=== PATIENT | female | born 1955 | race Caucasian/White ===

== ENCOUNTER 2016-03-26 23:53 | Emergency (ER) | payer MEDICARE ==
[2016-03-26 23:54] VITALS: BMI 17.2
[2016-03-27 00:01] VITALS: TEMP 97.4
--- NOTE | 2016-03-27 03:18 | EDPRACDOC ---
- General Information Information Source: Patient Mode Of Arrival: Car - History of Present Illness Onset: 6 days HPI: C/o back pain between her shoulder blades x 6 days, with epigastric pain and "tight stomach" x 2 days. Denies, fever, cp, sob, cough, sore throat, N/V/D, chnages in urine or BM. Eating and drinking normally. Med hx = HDL. Surgeries = g-tube in 2003 for throat cancer. Pain Location: Reports: Upper, Thoracic Pain Radiates To: Reports: None Pain Caused By: Reports: Lifting Circumstances: Reports: Other (chores) Relevant History: Reports: None Currently ?: No Pain Severity: Reports: Moderate Pain Quality: Reports: Sharp Worsened By: Reports: Breathing, Movement Associated Signs and Symptoms: Reports: Abdominal Pain <Rj Yeager - Last Filed: 03/27/16 03:41> <Rick Roman - Last Filed: 03/27/16 05:36> - General Information Chief Complaint: Back Pain Stated Complaint: BACK PAIN Time Seen by Provider: 03/27/16 02:56 Home Medications: Home Medications Aspirin [Chewable Aspirin] 81 mg PO DAILY 12/26/12 Multivitamin [Multiple Vitamins] 1 each PO DAILY 12/26/12 Atorvastatin Calcium [Lipitor] 20 mg PO DAILY 02/13/15 Azithromcyin [Zithromax 200 mg/5 ml] 250 ml PO DAILY 5 Days 03/27/16 Hydrocodone/Acetamin Liquid [Lortab Elixir] 10 ml PO Q6H 7 Days 03/27/16 Allergies/Adverse Reactions: Allergies Allergy/AdvReac Type Severity Reaction Status Date / Time valacyclovir HCl Allergy Hives* Verified 03/27/16 00:01 [From Valtrex] ED Past Medical History - History Reviewed Yes Nurses notes reviewed and agree except as marked - Patient Medical History Neurological History: Denies: Cerebrovascular Accident Respiratory History: Reports: Pneumonia (weeks ago) Musculoskeletal History: Reports: Arthritis Psychological History: Reports: Depression, Anxiety Systemic History: Reports: Cancer (tonsil), Anemia Surgical History: Reports: Tonsillectomy/Adnoidectomy. Denies: Hysterectomy Date of Last Radiation Treatment: 2003 Date of Last Chemotherapy Date: 2003 - Family Medical History Reports: Hypertension (mom,dad), Cardiac Disorders (dad). Denies: Diabetes, Cancer, Stroke - Social Medical History Smoking Status: Former smoker <Rj Yeager - Last Filed: 03/27/16 03:41> EDM Review of Systems - Review of Systems ROS Negative Except as Marked: Yes All systems reviewed and were negative except as marked Gastrointestinal: Pain Musculoskeletal: Back (pain thoracic along spine) <Rj Yeager - Last Filed: 03/27/16 03:41> - Physical Exam Constitutional: No apparent distress, Alert Oriented to: Time, Person, Place Last recorded Vital Signs: Last Vital Signs Temp 97.4 F L 03/26/16 23:56 Pulse 78 03/26/16 23:56 Resp 20 03/26/16 23:56 BP 170/86 03/26/16 23:56 Pulse Ox 97 03/26/16 23:56 Oxygen Pulse Oxygen Saturation 97 O2 Device Room Air Oxygen Flow Rate Fraction of Inspired Oxygen ( FIO2) - HEENT Head: Normal Eye Exam: negative: Conjunctival Injection, Scleral Icterus Oropharynx: negative: Drooling TMJ: Normal Nose: No Symptoms Reported Neck: Normal - Respiratory/Cardiovascular Respiratory: Normal - CTA Cardiovascular: Normal - GI Auscultation: Normal Palpation: Normal Tenderness: Moderate, Epigastric Casas's Sign: Negative - Musculoskeletal Back: Thoracic TTP Extremities: Normal - Integumentary Skin: Normal - Neurologic Mood Description: Normal Thought: Coherent Perception: Normal <Rj Yeager - Last Filed: 03/27/16 03:41> - Physical Exam Last recorded Vital Signs: Last Vital Signs Temp 97.4 F L 03/26/16 23:56 Pulse 82 03/27/16 04:00 Resp 19 03/27/16 04:00 BP 158/79 03/27/16 04:00 Pulse Ox 99 03/27/16 04:00 Oxygen Pulse Oxygen Saturation 99 O2 Device Room Air Oxygen Flow Rate Fraction of Inspired Oxygen ( FIO2) <Rick Roman - Last Filed: 03/27/16 05:36> ED Back Exam - Neurologic Motor Deficit: None - Musculoskeletal Cervical: Normal Thoracic: Tender Lumbar: Normal Midline: Tender Paraspinous: Tender Straight Leg Raise: Negative Pelvis: Normal <Rj Yeager - Last Filed: 03/27/16 03:41> - Results 03/27/16 03:27 03/27/16 03:27 - EKG EKG #1 EKG Time: 03:29 -: Yes EKG interpreted by me Rate: bpm: 81 Rhythm: NSR ST: Normal <ToyRj Blanton - Last Filed: 03/27/16 03:41> - Results 03/27/16 03:27 03/27/16 03:27 WBC 8.3 xk/uL (3.8-10.8) 03/27/16 03:27 RBC 4.60 xM/uL (4.20-5.40) 03/27/16 03:27 Hgb 12.2 g/dL (12.0-16.0) 03/27/16 03:27 Hct 36.5 % (36-47) 03/27/16 03:27 MCV 79 fL (81-99) L 03/27/16 03:27 MCH 26.6 pg (27-32) L 03/27/16 03:27 MCHC 33.5 g/dl (33-36) 03/27/16 03:27 RDW 15.6 % (11.5-14.5) H 03/27/16 03:27 Plt Count 391 xk/uL (130-400) 03/27/16 03:27 MPV 7.6 fL (7.4-10.4) 03/27/16 03:27 Neut % (Auto) 70.5 % (45-76) 03/27/16 03:27 Lymph % (Auto) 15.7 % (17-44) L 03/27/16 03:27 [place] % (Auto) 9.8 % (3-10) 03/27/16 03:27 Eos % (Auto) 3.2 % (0-5) 03/27/16 03:27 Baso % (Auto) 0.8 % (0-2) 03/27/16 03:27 Absolute Neuts (auto) 5.81 xk/uL (1.7-8.2) 03/27/16 03:27 Absolute Lymphs (auto) 1.25 xk/uL (0.65-4.75) 03/27/16 03:27 Sodium 142 mEq/L (137-146) 03/27/16 03:27 Potassium 4.2 mEq/L (3.5-5.1) 03/27/16 03:27 Chloride 100 mEq/L (98-107) 03/27/16 03:27 Carbon Dioxide 30 mMOL/L (22-33) 03/27/16 03:27 Anion Gap 16 mEq/L (8-16) 03/27/16 03:27 BUN 10 MG/DL (7-17) 03/27/16 03:27 Creatinine 0.50 MG/DL (0.52-1.04) L 03/27/16 03:27 Estimated GFR (MDRD) > 60 mL/min (>=60) 03/27/16 03:27 Glucose 101 MG/DL (70-99) H 03/27/16 03:27 Calculated Osmolality 272 MOs/Kg (270-290) 03/27/16 03:27 Calcium 9.7 MG/DL (8.4-10.2) 03/27/16 03:27 Total Bilirubin 0.4 MG/DL (0.2-1.3) 03/27/16 03:27 AST 31 IU/L (14-36) 03/27/16 03:27 ALT 27 IU/L (9-52) 03/27/16 03:27 Alkaline Phosphatase 101 IU/L (55-165) 03/27/16 03:27 Total Protein 7.9 G/DL (6.3-8.2) 03/27/16 03:27 Albumin 4.4 G/DL (3.5-5.0) 03/27/16 03:27 Lipase 33 U/L (23-300) 03/27/16 03:27 Urine Color Yellow 03/27/16 04:25 Urine Clarity Clear 03/27/16 04:25 Urine pH 6.0 (5.0-8.0) 03/27/16 04:25 Ur Specific [place] 1.005 (1.003-1.035) 03/27/16 04:25 Urine Protein Neg (NEG/TRACE) 03/27/16 04:25 Urine Glucose (UA) Neg (NEGATIVE) 03/27/16 04:25 Urine Ketones Neg (NEGATIVE) 03/27/16 04:25 Urine Occult Blood Neg (NEG/TRACE) 03/27/16 04:25 Urine Nitrite Neg (NEGATIVE) 03/27/16 04:25 Urine Bilirubin Neg (NEGATIVE) 03/27/16 04:25 Urine Urobilinogen <2.0 MG/DL (0-1) 03/27/16 04:25 Ur Leukocyte Esterase Neg (NEGATIVE) 03/27/16 04:25 Urine RBC 0-2 (0-5) 03/27/16 04:25 Urine WBC 0-2 (0-5) 03/27/16 04:25 Urine Bacteria Few (NEG/FEW) 03/27/16 04:25 Lab Results 03/27/16 03/27/16 03/27/16 04:25 03:27 03:27 WBC 8.3 RBC 4.60 Hgb 12.2 Hct 36.5 MCV 79 L MCH 26.6 L MCHC 33.5 RDW 15.6 H Plt Count 391 MPV 7.6 Neut % (Auto) 70.5 Lymph % (Auto) 15.7 L [place] % (Auto) 9.8 Eos % (Auto) 3.2 Baso % (Auto) 0.8 Absolute Neuts (auto) 5.81 Absolute Lymphs (auto) 1.25 Sodium 142 Potassium 4.2 Chloride 100 Carbon Dioxide 30 Anion Gap 16 BUN 10 Creatinine 0.50 L Estimated GFR (MDRD) > 60 Glucose 101 H Calculated Osmolality 272 Calcium 9.7 Total Bilirubin 0.4 AST 31 ALT 27 Alkaline Phosphatase 101 Total Protein 7.9 Albumin 4.4 Lipase 33 Urine Color Yellow Urine Clarity Clear Urine pH 6.0 Ur Specific [place] 1.005 Urine Protein Neg Urine Glucose (UA) Neg Urine Ketones Neg Urine Occult Blood Neg Urine Nitrite Neg Urine Bilirubin Neg Urine Urobilinogen <2.0 Ur Leukocyte Esterase Neg Urine RBC 0-2 Urine WBC 0-2 Urine Bacteria Few <Rick Roman - Last Filed: 03/27/16 05:36> <Rj Yeager - Last Filed: 03/27/16 03:41> Decision Time to Discharge: 05:35 - Departure Yes I personally saw and evaluated the patient. Disposition: Home Education/Counseling Given To: Patient Education/Counseling Given Regarding: Diagnosis, Treatment, Prognosis, Follow Up <Rick Roman - Last Filed: 03/27/16 05:36> - Departure Condition: Good Final Diagnosis: Compression fracture of L3 lumbar vertebra Right middle lobe pneumonia Qualifiers: Pneumonia type: due to unspecified organism Qualified Code(s): J18.1 - Lobar pneumonia, unspecified organism Referrals: Josh Multani MD [Primary Care Provider] - One Week Jaret Og MD [Staff Physician] - One Week Prescriptions: Azithromcyin [Zithromax 200 mg/5 ml] 250 ml PO DAILY 5 Days Hydrocodone/Acetamin Liquid [Lortab Elixir] 10 ml PO Q6H 7 Days
[2016-03-27 03:39] LABS: AUTOMATED BASOPHIL 0.8 % (0-2); AUTOMATED EOSINOPHIL 3.2 % (0-5); AUTOMATED LYMPH 15.7 % (17-44); AUTOMATED MONOCYTE 9.8 % (3-10); AUTOMATED NEUTROPHIL 70.5 % (45-76); MPV 7.6 fL (7.4-10.4)
[2016-03-27 03:48] LABS: BLOOD UREA NITROGEN 10 MG/DL (7-17); CALCIUM 9.7 MG/DL (8.4-10.2); CALCULATED OSMOLALITY 272 MOs/Kg (270-290); CHLORIDE 100 mEq/L (98-107); GLUCOSE 101 MG/DL (70-99); SODIUM LEVEL 142 mEq/L (137-146); TOTAL PROTEIN 7.9 G/DL (6.3-8.2)
[2016-03-27] MEDS ORDERED: Pharmacy Review for Metformin - IV Contrast Given SCH ×2 (04:00)
[2016-03-27 04:33] LABS: LEUKOCYTES/URINE NEG (NEGATIVE); NITRITE/URINE NEG (NEGATIVE); RBC/URINE 0-2 (0-5); URINE OCCULT BLOOD NEG (NEG/TRACE); WBC/URINE 0-2 (0-5)
[2016-03-27] MEDS ORDERED: HYDROmorphone 1 MG INJECTION IV ONE (04:54)
[2016-03-27] MEDS ORDERED: ONDANSETRON HCL 4 MG/2 ML VIAL IV ONE (04:54)
--- NOTE | 2016-03-27 05:23 | DIRPT ---
CLINICAL DATA: 60-year-old female with back pain and epigastric pain. EXAM: CT ANGIOGRAPHY CHEST, ABDOMEN AND PELVIS TECHNIQUE: Multidetector CT imaging through the chest, abdomen and pelvis was performed using the standard protocol during bolus administration of intravenous contrast. Multiplanar reconstructed images and MIPs were obtained and reviewed to evaluate the vascular anatomy. CONTRAST: 100 cc Isovue 370 COMPARISON: Chest radiograph dated 07/31/[address] dated 01/21/2015 FINDINGS: CTA CHEST FINDINGS Emphysematous changes of the lungs. Biapical scarring and bronchiectatic changes again noted similar to prior study. There are areas of scarring involving the superior segments of the lower lobes similar to prior study. There is a patchy area of nodularity and airspace opacity in the right middle lobe which appears smaller compared to the prior study and may represent an area of recurrent pneumonia. A stable appearing 5 mm nodular density is noted in the right lower lobe (series 4, image 60). A smaller nodular density is also noted in the right lower lobe (series 4, image 76) which appears grossly stable compared to the prior study. There is no pleural effusion or pneumothorax. The central airways are patent. The thoracic aorta appears unremarkable. No CT evidence of pulmonary embolism. There is no cardiomegaly or pericardial effusion. Top-normal right hilar lymph node measuring 9 mm in short axis. There is no mediastinal adenopathy. The esophagus is grossly unremarkable. No definite thyroid nodule identified. There is no axillary adenopathy. The chest wall soft tissues appear unremarkable. There is osteopenia with degenerative changes of the spine. Age indeterminate T8 compression fracture, likely old but new since the study dated 01/21/2015. Clinical correlation is recommended. No definite acute fracture. Review of the MIP images confirms the above findings. CTA ABDOMEN AND PELVIS FINDINGS No intra-abdominal free air or free fluid. There multiple scattered hepatic hypodense lesions measuring up to 1 cm in the right lobe of the liver which are incompletely characterized but may represent cyst or hemangioma. MRI may provide better characterisation. The gallbladder, pancreas, spleen, adrenal glands appear unremarkable. There is no hydronephrosis on either side. There is a 1.5 cm left renal upper pole cyst. The visualized ureters and urinary bladder appear unremarkable. The uterus is grossly unremarkable. There is moderate stool throughout the colon. No evidence of bowel obstruction or inflammation. Mild aortoiliac atherosclerotic disease. There is no aortic aneurysm or dissection. The origins of the celiac axis, SMA, JAVI as well as the origins of the renal arteries are patent. No portal venous gas identified. There is no adenopathy. The abdominal wall soft tissues appear unremarkable. There is osteopenia with degenerative changes of the spine. There is compression fracture of the L5 with near complete loss of vertebral body height, likely old. L3 superior endplate compression fracture as well as compression fracture of the inferior endplate of the L1 are age indeterminate but likely old. Review of the MIP images confirms the above findings. IMPRESSION: No CT evidence of pulmonary embolism or aortic dissection. Right middle lobe nodular densities and ground-glass airspace densities concerning for recurrent pneumonia. Clinical correlation and follow-up recommended. Stable appearing right lower lobe pulmonary nodules. Constipation. No bowel obstruction or inflammation. Osteopenia with multilevel age indeterminate compression fractures of the spine, likely old. Clinical correlation is recommended. Electronically Signed By: Guilherme Medina M.D. On: 03/27/2016 05:20
[2016-03-27] MEDS ORDERED: LEVOFLOXACIN 750 MG TAB PO ONE (05:30)
[2016-03-27] MEDS ORDERED: AZITHROMYCIN 100 MG/5 ML ORAL SUSP 5 ML PO ONE ×2 (05:34→06:00)
[2016-03-27 06:13] VITALS: BP 164/87; PULSE 94
== END 2016-03-27 06:11 | disposition home or self-care (01) ==
LOC: ED 23:53
DX: M48.56XA Collapsed vertebra, not elsewhere classified, lumbar region, initial encounter for fracture (principal); J18.1 Lobar pneumonia, unspecified organism
CPT/HCPCS: 36415; 71275; 74174; 80053; 81001; 83690; 85025; 93005; 96374; 96375; 99283; A9270; A9698; J1170; J2405; J3490

== ENCOUNTER → 2016-04-07 | Day surgery (SDC) | payer MEDICARE ==
[2016-03-26 23:54] VITALS: BMI 17.2
[~2016-04-07] MED LIST: BUPIVACAINE 0.5% 30 ML VIAL ONE; CEFAZOLIN 1 GM VIAL ONE; FENTANYL 100 MCG/2 ML VIAL IV ONE; FENTANYL 100 MCG/2 ML VIAL IV PRN; FENTANYL 100 MCG/2 ML VIAL ONE; HYDROmorphone 1 MG INJECTION IV PRN; ISOVUE-300 (61%) 50 ML ONE; LABETALOL 20 MG/4 ML SYRINGE IV PRN; LIDOCAINE 1% 30 ML VIAL (PRESERVATIVE FREE) ONE; MEPERIDINE 25 MG/ML TUBEX IV PRN; MIDAZOLAM 2 MG/2 ML VIAL IV ONE; ONDANSETRON HCL 4 MG ODT TAB PO PRN; ONDANSETRON HCL 4 MG/2 ML VIAL IV ONE; ONDANSETRON HCL 4 MG/2 ML VIAL IV PRN; OXYCODONE HCL 5 MG TABLET ONE; PROMETHAZINE 25 MG/ML VIAL IV PRN; PROPOFOL 200 MG/20 ML VIAL IV ONE; hydrALAZINE 20 MG/ML VIAL IV PRN
--- NOTE | 2016-04-07 09:42 | SC.ANESPOS ---
[id number], Hemodynamically Stable, Pain Control Adequate Phase I & II Recovery Complete: Yes Apparent Anesthesia Complication: No : N - Vital Signs Blood Pressure: 130/64 Pulse: 76 Resp Rate: 18 O2 Sat: 95 Temp: 97.2 F
--- NOTE | 2016-04-07 09:43 | HIM.ANES ---
Anesthesia Evaluation & Plan Diagnoses: WEDGE COMPRESSION FRACTURE OF T11-T12 VERTEBRA, INIT (04/07/16) Consented Procedure: KYPHOPLASTY OF THORACIC-8 VERTEBRA WITH OTHER PROCEDURES INDICATED - Focused Review of Systems Cardiac History: Yes: Hx Cardiac Disorders, Hx Abnormal Cholesterol/ Hyperlipidemia HEENT: Yes: Hx Dysphagia (RIGHT SIDE OF THROAT PARALYZED.. NUMBNESS FROM RIGHT EAR DOWN JAW LINE), Hx Vision Problem (glasses), Other HEENT Problems Hx Other HEENT Surgery: TONSILLECTOMY 2003 Hx Other HEENT Problems: history of tonsillar cancer Respiratory: Yes: Hx Emphysema (CHANGES PER CT SCAN), Hx Snoring, Hx Pneumonia ( RECURRENT PNEUMONIA) Gastrointestinal: Yes: Hx Gastroesophageal Reflux Disease, Hx Gastrointestinal Disorders, Hx Chronic Constipation, Hx Colonoscopy (2012 POLYPECTOMY), Hx Endoscopy (2014), Hx Esophageal Dilatation (2014) Neurological/Musculoskeletal: Yes: Hx Migraine (HALO), Hx Neurological Disorders No: HX Cerebrovascular Accident Psychological: Yes Hx Anxiety, Yes Hx Depression, No Hx Mental/Emotional Disorders Blood/Autoimmune: Yes: Hx Anemia No: Hx AIDS, Hx Hepatitis (type) Smoking Status: Former smoker Hx Chest Xray (date): Yes (03/2016 CT CHEST BILATERAL APICAL SCARRING, BRONCHIECTATIC CHANGES) Surgical History: Yes: Carotid Endarterectomy (RIGHT), T&A, Knee ( RT KNEE ARTHROSCOPIC) Other Surgical History: TONSILLECTOMY 2003 RCEA 2012 DUE TO RADIATION FEEDING TUBE PLACEMENT 2003 - Focused Physical Exam NPO since: 04/06/161999 Mallampati: Class II Thyromental Distance: Greater than 3 Dental: Normal - no significant findings Cardiovascular/Chest: Normal Respiratory: Lungs clear Any problems with anesthesia, including nausea and vomiting?: No Any relatives with a history of Malignant Hyperthermia?: No Beta Olivia given (if appropriate): N/A Does the patient have a history of Motion Sickness-: No Other: Problem List Problem Status Onset Compression fracture of L3 lumbar vertebra Acute Right middle lobe pneumonia Acute Allergies Allergy/AdvReac Type Severity Reaction Status Date / Time valacyclovir HCl Allergy Hives* Verified 04/07/16 09:19 [From Valtrex] Home Medications Medication Instructions Recorded Last Taken Type Aspirin [Chewable Aspirin] 81 mg PO DAILY 12/26/12 04/06/16 History Multivitamin [Multiple Vitamins] 1 each PO DAILY 12/26/12 04/06/16 History Atorvastatin Calcium [Lipitor] 10 mg PO DAILY 02/13/15 04/06/16 History Hydrocodone/Acetamin Liquid 10 ml PO Q6H PRN 04/06/16 Unknown History [Lortab Elixir] Height and Weight Patient's height 5 ft 3 in Patient's weight 97 lb BMI 17.2 Vital Signs Temperature 97.2 F L 04/07/16 09:42 Pulse Rate 76 04/07/16 09:42 Respiratory Rate 18 04/07/16 09:42 Blood Pressure 130/64 04/07/16 09:42 Pulse Oxygen Saturation 95 04/07/16 09:42 - Anesthetic Plan Anesthesia Type: MAC ASA Class: 3 -: I have examined this patient and reviewed the medical record. The patient has been assessed prior to anesthesia. Risks and benefits of anesthesia and anesthetic technique options have been discussed and all questions answered. The patient accepts the risk and desires me to proceed with the planned anesthetic.
--- NOTE | 2016-04-07 10:47 | HIMOPRPT ---
DATE OF PROCEDURE: 04/07/16 PREOPERATIVE DIAGNOSIS: T8 compression fracture. POSTOPERATIVE DIAGNOSIS: T8 compression fracture. PROCEDURE PERFORMED: Kyphoplasty, T8 SURGEON: Jaret Og MD. REHABILITATION ENGINEER: ANESTHESIA: General endotracheal anesthesia. IV FLUIDS: Crystalloids ESTIMATED BLOOD LOSS: Minimal SPECIMENS: None. COMPLICATIONS: None. IMPLANTS: Bone cement 2 cubic centimeters in each pedicle. A total of 4 cubic centimeters injected in the vertebral body of T8. 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 Patient sustained a T8 compression fracture as a result of a fall. The patient was scheduled for kyphoplasty of T8. The patient understood that the risks involved in surgery include infection, extravasation of the cement, neurological deficit , DVT, pulmonary embolism, stroke, and even . The patient volunteered an informed consent. The patient was seen on the day of surgery in the preop holding area. Surgical site was marked. The patient was then wheeled back into the operating room. DESCRIPTION OF THE PROCEDURE: The patient was intubated while on the hospital bed and then placed prone on the radiolucent table. Proper time-out was performed. 2 grams of IV Ancef were given. Surgical site was prepped and draped. Double C-arm was used. We started with cannulation of the left T8 pedicle. We used Jamshidi needles to cannulate the each pedicle. AP and lateral C-arm images were used. Once the pedicles were cannulated, we inserted a kyphoplasty balloon on each side. This balloon was inflated under AP and lateral C-arm images. We then injected a semiliquid cement. Total of 2 cubic centimeters cement was injected into the each pedicle. No extravasation was noted. The final AP and lateral x-rays were obtained. The skin was closed with 3-0 nylon. The patient tolerated the procedure very well and was taken to the recovery room in stable condition. DISPOSITION: The patient would be discharged home today. The patient would be seen back in the clinic in 2 weeks.
[2016-04-07] MEDS: FENTANYL 100 MCG/2 ML VIAL IV PRN ×2 (11:00→11:10)
[2016-04-07 14:33] VITALS: BP 130/64; PULSE 76; TEMP 97.2
== END ==
LOC: SDC 08:53
PROVIDERS: ATTEND Orthopaedic Surgery
PROC: 0PU43JZ Supplement Thoracic Vertebra with Synthetic Substitute, Percutaneous Approach (ICD-10-PCS; 2016-04-07)
PROC: 0PS43ZZ Reposition Thoracic Vertebra, Percutaneous Approach (ICD-10-PCS; principal; 2016-04-07 10:00)
DX: S22.080A Wedge compression fracture of T11-T12 vertebra, initial encounter for closed fracture (principal); E78.5 Hyperlipidemia, unspecified; E78.00 Pure hypercholesterolemia, unspecified; J43.9 Emphysema, unspecified; K21.9 Gastro-esophageal reflux disease without esophagitis; G43.909 Migraine, unspecified, not intractable, without status migrainosus; F41.9 Anxiety disorder, unspecified; F32.9 Major depressive disorder, single episode, unspecified; Z87.891 Personal history of nicotine dependence; Z79.899 Other long term (current) drug therapy; W19.XXXA Unspecified fall, initial encounter
CPT/HCPCS: 22513; A9270; J0690; J2001; J2405; J2550; J3010; J3490; J2250